=== PATIENT | female | born 1955 | race Hispanic/Latino ===

== ENCOUNTER 2018-02-18 12:38 | Emergency (ER) | payer MEDICAID | END 2018-02-18 14:36 | disposition home or self-care (01) | LOC: EDH 12:38 | DX: S62.632A Displaced fracture of distal phalanx of right middle finger, initial encounter for closed fracture (principal); S62.636A Displaced fracture of distal phalanx of right little finger, initial encounter for closed fracture; I10 Essential (primary) hypertension; Z88.0 Allergy status to penicillin; Z98.890 Other specified postprocedural states; X58.XXXA Exposure to other specified factors, initial encounter; Y93.89 Activity, other specified; Y92.89 Other specified places as the place of occurrence of the external cause; Y99.8 Other external cause status | CPT/HCPCS: 29130; 73140 ==

== ENCOUNTER → 2019-11-21 | Outpatient (CLI) | payer OTHER, MEDICARE | END | disposition home or self-care (01) | LOC: RAH 15:14 | PROVIDERS: ATTEND Family Medicine | DX: Z12.31 Encounter for screening mammogram for malignant neoplasm of breast (principal) | CPT/HCPCS: 77067 ==

== ENCOUNTER 2020-03-12 16:40 | Emergency (ER) | payer OTHER, MEDICARE ==
[2020-03-12] MEDS ORDERED: ACETAMINOPHEN EXTRA STRENGTH 500 MG TABLET ONE (16:55)
== END 2020-03-12 18:04 | disposition home or self-care (01) ==
LOC: EDH 16:40
DX: S93.401A Sprain of unspecified ligament of right ankle, initial encounter (principal); I10 Essential (primary) hypertension; I25.10 Atherosclerotic heart disease of native coronary artery without angina pectoris; Z88.0 Allergy status to penicillin; X50.1XXA Overexertion from prolonged static or awkward postures, initial encounter; Y93.89 Activity, other specified; Y92.89 Other specified places as the place of occurrence of the external cause; Y99.8 Other external cause status
CPT/HCPCS: 73610; 73630

== ENCOUNTER 2022-05-15 20:25 | Emergency (ER) | payer OTHER, MEDICARE ==
[~2022-05-15] VITALS: Ht 160 cm; Wt 75.0 kg
[2022-05-15 20:47] VITALS: BP 155/73
== END 2022-05-15 21:37 | disposition home or self-care (01) ==
LOC: EDH 20:25
DX: S90.415A Abrasion, left lesser toe(s), initial encounter (principal); I10 Essential (primary) hypertension; Z88.0 Allergy status to penicillin; X58.XXXA Exposure to other specified factors, initial encounter; Y93.89 Activity, other specified; Y92.89 Other specified places as the place of occurrence of the external cause; Y99.8 Other external cause status
CPT/HCPCS: 73630

== ENCOUNTER 2024-03-07 09:05 | Emergency (ER) | payer MEDICARE ==
[~2024-03-07] VITALS: Ht 160 cm; Wt 68.0 kg
--- NOTE | 2024-03-07 09:37 | ERN ---
General Chief Complaint: Hand Problem/Injury Stated Complaint: LT HAND INJURY Time Seen by MD: 09:08 History of Present Illness Initial Comments 68-year-old female who presents for left hand pain. She had a follow up at four days ago, hyperextended left hand. She complains of base of the pinky. She had full range of motion, very minimal swelling. Neurovascularly intact. No other injuries. Allergies: Coded Allergies: Penicillins (Unverified Allergy, Unknown, 03/12/20) Past Medical History Past Medical History: Hypertension Medical History Other: OSTEOPOROSIS Past Surgical History: None ROS Dictation CONSTITUTIONAL: No chills, no fever, no weakness, no diaphoresis, no malaise. HEAD/FACE: No signs of trauma. EENT: No eye pain, no blurred vision, no tearing, no double vision, no ear pain, no ear discharge, no nose pain, no nasal congestion, no throat pain, no throat swelling, no mouth pain. RESPIRATORY: No cough, no orthopnea, no SOB, no stridor, no wheezing. CARDIOVASCULAR: No chest pain, no edema, no palpitations, no syncope. GASTROINTESTINAL/ABDOMINAL: No abdominal pain, no constipation, no diarrhea, no nausea, no vomiting. GENITOURINARY: No abnormal discharge, no dysuria, no frequent urination, no hematuria. No complaints of pain in the genitals. MUSCULOSKELETAL: Left hand pain INTEGUMENTARY: No change in color, no change in hair/nails, no dryness, no lesion, no lumps, no rash. NEUROLOGICAL/PSYCH: No anxiety, not depressed, no emotional problem, no headache, no numbness, no pre-existing deficit, no history of seizures, no tremors, no weakness. HEMATOLOGIC/LYMPHATIC: Not anemic, no history of blood clots, no apparent bleeding, no bruising, glands not swollen. All Systems Negative, Except as Noted. Physical Exam Physical Exam Dictation VITAL SIGNS: Reviewed. GENERAL APPEARANCE: Alert, oriented x3, no acute distress HEAD AND FACE: Non-traumatic. EYES: PERRL, pink conjunctivas, eyelid no trauma, anterior chamber clear. EARS: Pinnas intact and no signs of trauma or erythema. Ear canals clear and no discharge. TMs no erythema. NOSE: No discharge, no bleeding. OROPHARYNX: Mouth normal, teeth no caries, tongue pink. Pharynx clear, no erythema. Tonsils no exudates, no abscesses noted. Mucous membrane moist. NECK: Supple, non-tender, no thyromegaly, no masses, no JVD, no bruits. BREAST: Deferred. CHEST: No tenderness, no crepitus, no paradoxical movement, no retractions. LUNGS: Clear, well-ventilated, symmetric, no rales, no wheezing, no rhonchi, no stridor, good breath sounds bilaterally. HEART: Regular rate, regular rhythm, no murmur, no gallops. VASCULAR: No peripheral edema. ABDOMEN: Soft, positive bowel sounds, nondistended, no guarding, nontender, no rebound, no masses no hepatomegaly, no splenomegaly, no Laws's sign, no hernias. RECTAL: Deferred. GENITAL: Deferred. NEUROLOGICAL: Normal speech, gross motor function intact, gross sensory function intact. MUSCULOSKELETAL: Neck nontender, full range of motion, back nontender, full range of motion. Left hand up some tenderness to the base of the left pinky. Full range of motion. Neurovascularly intact. EXTREMITIES: Nontender, full range of motion. SKIN: Color pink, dry, no turgor, no rash, no lacerations, no abrasions, no co ntusions. LYMPHATICS: Deferred. MDM CC: Left hand pain Historian: Patient Comorbidities: Osteoporosis, hypertension Limitations by social determinants of health: None Differential diagnosis: Fracture, musculoskeletal injury, sprain /strain, other. Neurovascularly intact. No concerning findings on exam the pain and tenderness. X-ray per my independent interpretation shows no fractures or bony abnormalities. likely a sprain / strain. We will recommend RICE guidelines, NSAID, PCP follow up as needed. ED Course Orders Procedure Category Date Status Time Hand 3+Vws Lt RAD 03/07/24 Taken 09:17 Vital Signs Date Time Temp Pulse Resp B/P (MAP) Pulse Ox O2 Delivery O2 Flow Rate FiO2 03/07/24 09:06 97.0 61 20 172/72 99 Room Air DX & DISP Disposition: Discharge Departure Impression: Primary Impression: Sprain of hand, left Condition: Stable Scripts Meloxicam (Meloxicam) 15 Mg Tablet 15 MG PO DAILY PRN for PAIN for 10 Days, #10 TAB Prov: JUAN GOMEZ DO 03/07/24 Additional Instructions: The x-ray does not show any fractures. Your symptoms are consistent with a sprain/strain. This is soft tissue injury. I recommend resting your hand as needed. Apply ice twice per day for least 20 minutes for swelling and inflammation. You can wear a compression device such as an Dustin wrap or a wrist splint. These are [id number]. I have prescribed meloxicam, which is an anti-inflammatory pain medication. You can take this medicine once per day for pain and inflammation for the next week or so. Do not mix this medication with [id number] naproxen, ibuprofen, or aspirin. You can take Tylenol based products. Please follow up with your primary doctor early next week for re-evaluation if you continue with symptoms. Referrals: KAVEH TYLER MD (PCP) JUAN GOMEZ DO Mar 07, 2024 09:37
[2024-03-07] MEDS ORDERED: MELO-108 PO (09:56)
[2024-03-07 09:57] VITALS: BP 160/69; PULSE 62; RESP 20; TEMP 97.9; O2SAT 99
--- NOTE | 2024-03-07 10:05 | HMCIMG ---
HAND 3+VWS LT REASON: injury TECHNIQUE: 3 views were obtained. FINDINGS: There is no evidence of fracture or dislocation. There is no joint effusion. The soft tissues appear unremarkable. There is no evidence of a radiopaque foreign body. IMPRESSION: No acute findings.
== END 2024-03-07 10:00 | disposition home or self-care (01) ==
LOC: EDH 09:05
DX: S63.92XA Sprain of unspecified part of left wrist and hand, initial encounter (principal); I10 Essential (primary) hypertension; Z88.0 Allergy status to penicillin; X58.XXXA Exposure to other specified factors, initial encounter; Y93.89 Activity, other specified; Y92.89 Other specified places as the place of occurrence of the external cause; Y99.8 Other external cause status
CPT/HCPCS: 73130; 99283